=== PATIENT | female | born 1960 | race Two or more races ===

== ENCOUNTER 2022-06-01 15:00 | Emergency (ER) | payer SELFPAY ==
--- NOTE | 2022-06-01 15:12 | NUR ---
PT WAS CALLED TO TRIAGE AREA FROM WAITING ROOM - NO ANSWER. PT IS NOT IN WAITING ROOM AND NOT OUSIDE.
--- NOTE | 2022-06-01 15:37 | NUR ---
PT IS NOT IN WAITING ROOM.
== END 2022-06-01 15:38 | disposition left against medical advice (07) ==
LOC: ER 15:04
DX: Z53.21 Procedure and treatment not carried out due to patient leaving prior to being seen by health care provider (principal)